=== PATIENT | female | born 1995 | race Caucasian/White ===

== ENCOUNTER 2024-09-14 12:46 | Outpatient (REF) | payer OTHER, SELFPAY ==
--- OUTSIDE RECORDS SUMMARY | 2024-09-14 12:51 | XMS_ITS | Encounter Summary ---
Author Organization [facility] Address [address] [place] [address] Care Team Providers Care Software Development Analyst Name Role Phone Deepali Valente MD Primary Care Prov ider Encounter Details Date Type Department Care Team ([facility] st Contact Info) Description 09/10/2024 Telephone Adult Medicine [address] [phone] Zohra Coyle MA Social History Tobacco Use Types Packs/Day Years Used Date Smoking Tobacco: Never Smokeless Tobacco: Never Alcohol Use Standard Drinks/Week Comments Not Currently 1 (1 standard drink = 0.6 oz pur e alcohol) Comments Unknown Sex and Gender Information Value Date Recorded Sex Assigned at Not on file Legal Sex Female 6:11 PM EST Gender Identity Not on file Sexual Orientation Not on file documented as of this encounter Progress Notes * Zohra Coyle MA - 09/10/2024 7:58 AM EDT Patient is complaint of fatigue and always feeling tired, requesting Lab work Vit D CBC Lipid CMP Please review request documented in this encounter Plan of Treatment Scheduled Orders Name Type Priority Associated Diagnoses Orde r Schedule Thyroid stimulating hormone with reflex to free t4 and free t3 Lab Routine Other fatigue 1 Occurrences starting 09/10/2024 until 09/10/2025 Ferritin Lab Routine Other fatigue 1 Occurrences starting 09/10/2024 until 09/10/2025 Folate Lab Routine Other fatigue 1 Occurrences starting 09/10/2024 until 09/10/2025 Iron and TIBC Lab Routine Other fatigue 1 Occurrences starting 09/10/2024 until 09/10/2025 Vitamin B12 Lab Routine Other fatigue 1 Occurrences starting 09/10/2024 until 09/10/2025 Vitamin D 25 hydroxy Lab Routine Other fatigue 1 Occurrences starting 09/10/2024 until 09/10/2025 Comprehensive metabolic panel Lab Routine Other fatigue 1 Occurrences starting 09/10/2024 until 09/10/2025 CBC and differential Lab Routine Other fatigue 1 Occurrences starting 09/10/2024 until 09/10/2025 Lipid panel with reflex to direct LDL Lab Routine Other fatigue 1 Occurrences starting 09/10/2024 until 09/10/2025 documented as of this encounter Visit Diagnoses Diagnosis Other fatigue- 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
--- OUTSIDE RECORDS SUMMARY | 2024-09-14 12:51 | XMS_ITS | Clinical Summary ---
Author Organization [facility] Address [address] [place] [address] Care Team Providers Care Master Chef Name Role Phone Deepali Valente MD Primary Care Prov ider Social History Tobacco Use Types Packs/Day Years Used Date Smoking Tobacco: Never Assessed Sex and Gender Information Value Date Recorded Sex Assigned at Female 02/02/2022 8:53 AM EST Gender Identity Not on file Sexual Orientation Not on file Job Start Date Occupation Industry Not on file Not on file Not on file Plan of Treatment Health Maintenance Due Date Last Done Comments Hepatitis B Vaccines (1 of 3 - 3-dose series) 1996 Hepatitis C Screening 1996 Depression Screening 2008 Preventative Health Evaluation 2014 Cervical Cancer Screening (Pap Smear) 2017 COVID-19 Vaccine ( season) 2023 03/12/2021, 08/24/2020, 08/03/2020 Influenza Vaccine (#1) 2024 10/23/2020, 2017 DTap / Tdap / Td (8 - Td or Tdap) 04/23/2027 04/22/2017, 05/05/2007, 04/19/2001, Additional history exists Pneumococcal Vaccine Aged Out No long er eligible based on patient's age to complete this topic RSV Ped < 20 months Aged Out No longe r eligible based on patient's age to complete this topic Advance Directives For more information, please contact: [phone] Documents on File Type Date Recorded Patient Transport Operations Inspector Expl anation Advance Directive and Living Will 09/26/2015 11:08 AM Care Teams Master Chef Relationship Specialty Start Date End Date Deepali Valente MD PCP - General Internal Medicine 09/19/20
--- OUTSIDE RECORDS SUMMARY | 2024-09-14 12:51 | XMS_ITS ---
Author Name [facility] Organization Unknown Care Team Organization Name Specialty Phone Email Start Date End Da te [facility] JAZLYN WALDROP Primary Care 10/21/2022 10/03/2023 [facility] JAZLYN WADLROP Primary Care 12/22/2021 10/03/2023
--- OUTSIDE RECORDS SUMMARY | 2024-09-14 12:52 | XMS_ITS | Encounter Summary ---
Author Organization [facility] Address [address] [place] [address] Phone Care Team Providers Care Flow Specialist Name Role Phone Unavailable Primary Care Provider Unavailabl e Encounter Details Date Type Department Care Team (Late st Contact Info) Description 07/03/2017 Conversion Encounter [facility] [address] [id number] Social History Tobacco Use Types Packs/Day Years Used Date Smoking Tobacco: Never Assessed Comments Unknown Sex and Gender Information Value Date Recorded Sex Assigned at Not on file Legal Sex Female 6:26 PM EDT Gender Identity Not on file Sexual Orientation Not on file documented as of this encounter Plan of Treatment Not on file documented as of this encounter Visit Diagnoses Not on filedocumented in this encounter
[2024-09-14 13:07] LABS: MANUAL DIFF FLAG NO
[2024-09-14 13:27] LABS: Hematocrit 36.8 % (37.0-47.0); Hemoglobin 11.9 g/dl (12.0-16.0); Imm Gran Abs Auto 0.00 X10*3/uL (0.00-0.03); Imm Gran Pct Auto 0.0 % (0.0-0.4); Lymphocytes Absolute Auto 2.4 X10*3/uL (1.2-4.9); Mean Corpuscular HGB Conc 32.3 g/dl (31.0-35.0); Mean Corpuscular Hemoglobin 27.6 pg (27.0-33.0); Mean Corpuscular Volume 85.4 fL (80.0-98.0); NRBC Abs Auto 0.000 X10*3/uL (0.0-0.012); NRBC Pct Auto 0.0 /100WBC (0.0-0.2); Platelet Count 279 X10*3/uL (160-400); Red Blood Count 4.31 X10*6/uL (4.20-5.50); White Blood Count 5.3 X10*3/uL (4.8-10.8)
[2024-09-14 14:01] LABS: Alanine Aminotransferase 10 U/L (0-31); Albumin Level 4.2 g/dL (3.5-5.0); Alkaline Phosphatase 46 U/L (39-117); Anion Gap 11 (12-20); Aspartate Amino Transferase 17 U/L (5-31); Blood Urea Nitrogen 12 mg/dL (9-16); Calcium 8.4 mg/dL (8.4-10.2); Carbon Dioxide 23 mmol/L (22-29); Chloride 110 mmol/L (96-108); Cholesterol 180 mg/dL (<200); Estimated Glomerular Filt Rate > 60; HDL Cholesterol 56 mg/dL (>40); Iron 52 mcg/dL (30-160); Percent Iron Saturation 16 % (15-50); Potassium 3.6 mmol/L (3.3-5.1); Sodium 140 mmol/L (135-145); Total Iron Binding Capacity 326 mcg/dL (228-428); Total Protein 6.6 g/dL (6.5-8.0); Triglycerides 58 mg/dL (<150); Unsaturated Iron Binding 274 ug/dL
[2024-09-14 14:16] LABS: Ferritin 9 ng/mL (10-122)
[2024-09-14 14:29] LABS: Folate 11.7 ng/mL (> or = 4.0); Vitamin B12 281 pg/mL (200-900)
[2024-09-14 19:06] LABS: Reflex LDLD? No
== END 2024-09-14 12:47 | disposition home or self-care (01) ==
LOC: HO.LAB 12:46
PROVIDERS: PCP Internal Medicine; Visit Provider Internal Medicine
DX: R53.83 Other fatigue (principal)
CPT/HCPCS: 36415; 80053; 80061; 82306; 82607; 82728; 82746; 83540; 84443; 84481; 85025